=== PATIENT | female | born 2000 | race Caucasian/White ===

== ENCOUNTER 2020-04-14 08:55 | Inpatient (IN) ==
[2020-04-14] MEDS ORDERED: OXYTOCIN 30 UNITS/500 ML BAG IV PRN ×2 (09:40)
--- NOTE | 2020-04-14 10:00 | Obstetrical Progress Note ---
Date of Service April 14, 2020 Assessment & Plan Admission and Anticipated Discharge Date Admission Date: April 14, 2020 Subjective Met pt and reviewed PNC SROM ay 21;00 on 04/13/20 FHR; CAT! Ctx 3-4mins VE 2-3/50/post bedside sono EFW 7-8lbs by annika will start Pitocin augmentation Results & Data ([facility]) Vital Signs (Past 12 Hours) Vital Signs Temp Pulse Resp BP 04/14/20 09:11 36.8 C 70 20 133/71
[2020-04-14 10:06] LABS: Hemoglobin 11.1 g/dL (12.0-16.0); Mean Corpuscular Hemoglobin 25.4 pg (25-34); Mean Corpuscular Volume 77.8 fL (80-100); Platelet Count 217 K/uL (130-400); RDW Coefficient of Variation 15.4 % (11.5-14.5); RDW Standard Deviation 44.1 fL (36.4-46.3); Red Blood Count 4.37 M/uL (4.2-5.4); White Blood Count 12.42 K/uL (4.8-10.8)
[2020-04-14 10:08] LABS: Mean Corpuscular Hgb Conc 32.6 g/dL (32-36)
[2020-04-14] MEDS: LACTATED RINGER'S 1,000 ML IV PRN ×3 (10:28→19:03)
[2020-04-14 10:29] LABS: Alanine Aminotransferase 15 U/L (12-78); Albumin Level 2.6 gm/dl (3.4-5.0); Alkaline Phosphatase 352 U/L (45-117); Aspartate Aminotransferase 23 U/L (15-37); Bilirubin Direct < 0.1 mg/dl (0-0.2); Bilirubin,Total 0.4 mg/dl (0.2-1); Total Protein 6.1 gm/dl (6.4-8.2)
[2020-04-14] MEDS ORDERED: BUPIVACAINE 0.25% 30 ML VIAL ONE ×2 (14:52→22:23)
[2020-04-14] MEDS ORDERED: ePHEDrine sulfate 50 MG/ML AMP ONE (14:52)
[2020-04-14] MEDS ORDERED: fentaNYL 2MCG/ML ROPIV 1.25MG/ML 100 ML BAG EPI ONE (14:52)
[2020-04-14] MEDS ORDERED: fentaNYL citrate 100 MCG/2 ML VIAL ONE (14:52)
[2020-04-14] MEDS ORDERED: ONDANSETRON INJ 2 MG/ML 2 ML VIAL IV PRN (14:57)
[2020-04-14] MEDS ORDERED: NALOXONE HCL 0.4 MG/1 ML VIAL/CARP IV PRN (14:57)
[2020-04-14] MEDS ORDERED: DiphenhydrAMINE HCL 50 MG/ML VIAL IV PRN (14:57)
[2020-04-14] MEDS ORDERED: NALOXONE HCL 1 MG in SODIUM CHLORIDE 0.9% 1000ML 1,000 ML IV PRN (14:57)
[2020-04-14] MEDS ORDERED: ePHEDrine sulfate 50 MG/ML AMP IV PRN (14:57)
--- NOTE | 2020-04-14 14:57 | Anesthesiology Consultation ---
Date of Service April 14, 2020 Assessment & Plan (1) Encounter for pre-operative examination: Chart Review Chart Review: Acceptable Risk for Labor Epidural Consults Requested none ASA ASA2 Proposed Anesthesia Anesthesia Type: Labor Epidural Risk / Benefits Reviewed With: PT / POA / Parent / Guardian, Accepts Plan and Informed Consent Obtained History Height/Weight Height: 5 ft 9 in Weight: 88.904 kg Allergies Allergy/AdvReac Type Severity Reaction Status Date / Time bee venom protein (honey bee) Allergy Intermediate Hives Verified 04/14/20 09:16 nickel Allergy Mild RASH WHERE Verified 04/14/20 09:16 EVER TOUCHED Medications Home Medications Medication Instructions Recorded Confirmed Last Taken ferrous sulfate 325 mg PO DAILY 04/14/20 04/14/20 04/13/20 19:00 omeprazole magnesium [Prilosec OTC] 20 mg PO DAILY 04/14/20 04/14/20 04/12/20 05:30 vit-iron fum-folic ac 1 tab PO DAILY 04/14/20 04/14/20 04/13/20 19:00 [ Vitamin] Active Medications Generic Name Dose Route Start Last Admin Trade Name Freq PRN Reason Stop Dose Admin Lactated Ringer's 1,000 mls @ 125 mls/hr 04/14/20 09:40 04/14/20 14:40 Lr IV 04/16/20 09:39 999 mls/hr .Q8H PRN Titration L&D Protocol Protocol Oxytocin 30 units in 500 mls @ 12 mls/hr 04/14/20 09:40 04/14/20 14:55 Pitocin IV 04/16/20 09:39 0 units/hr .Q24H PRN 0 mls/hr Labor Induction/Augmentation Titration Protocol 0.72 UNITS/HR Past Medical History Medical History Arm fracture Hepatitis (Chronic) Exercise / Class Metabolic Activity II 4-5 Yardwork/Stairs/Walk up hill Past Family History Family History Other Cancer Heart disease Hypertension Past Anesthesia History No Hx of Anesthesia Complications and No Family Hx of Anesthesia Complications History of PONV No Hx of PONV and No Hx of Motion Sickness Social History Smoking Status: Never smoker Hx Alcohol Use: No Hx Substance Use: No Physical Exam Vital Signs Last Vital Signs Temp 98.2 F 04/14/20 14:00 Pulse 75 04/14/20 14:52 Resp 20 04/14/20 14:00 BP 173/80 H 04/14/20 14:50 Pulse Ox 94 04/14/20 14:52 ENMT Mouth: no dentition abnormality Thyromental Distance: > or= 3.5 Finger Breadths Mallampati Class: II Neck normal visual inspection Respiratory normal respiratory effort Auscultation: lungs clear to auscultation bilaterally Cardiovascular Rate/Rhythm: regular rate and regular rhythm Testing Laboratory Results 04/14/20 09:51
--- NOTE | 2020-04-14 15:19 | Obstetrical Progress Note ---
Date of Service April 14, 2020 Assessment & Plan Admission and Anticipated Discharge Date Admission Date: April 14, 2020 Subjective Called to evaluate pt with sudden onset of chest pain Pain spontaneously resolved as quickly as it came on 3 lead EKG showed nml rhythm BP is 170/80. Pulse Ox >90% Pit; 14 pt reports ctx as mild to moderate A/ Plan' Pt is 20 yo with no cardiac risk factors 12 lead EKG ordered Pt getting epidural Will consider cardiac work up if it recurs again Results & Data ([facility]) Vital Signs (Past 12 Hours) Vital Signs Temp Pulse Resp BP Pulse Ox 04/14/20 15:12 86 93 04/14/20 15:07 75 94 04/14/20 15:02 72 94 04/14/20 14:58 86 94 04/14/20 14:57 73 94 04/14/20 14:56 83 154/80 H 04/14/20 14:54 84 170/81 H 04/14/20 14:52 75 94 04/14/20 14:50 88 173/80 H 04/14/20 14:47 117 H 184/126 H 92 04/14/20 14:00 36.8 C 20 04/14/20 13:56 77 129/75 04/14/20 12:56 75 141/85 H 04/14/20 11:56 36.8 C 79 20 119/53 L 04/14/20 11:17 72 134/81 04/14/20 10:29 36.8 C 72 20 138/82 04/14/20 09:11 36.8 C 70 20 133/71
[2020-04-14] MEDS: fentaNYL 2MCG/ML ROPIV 1.25MG/ML 100 ML BAG EPI PRN (15:51)
--- NOTE | 2020-04-14 16:16 | Consultation ---
Date of Consultation April 14, 2020 Assessment & Plan (1) Chest pain: Pt is 20 y/o F without significant PMH GERD seen in medical consultation at request of Dr Avilez for episode of CP. Pt in labor and delivery and was awaiting epidural. Pt describes as sharp pain started left side of chest and radiated to right side of chest with some SOB and palpitations. Denies any dizziness, syncope, diaphoresis, N/V. Pain lasted 5 minutes and self resolved. EKG was obtained with sinus rhythm rate of [address] depression anterior leads Pt was hypertensive with BPs up to 184/126 with pulse of 117. She did receive her epidural. Her pulse is in 70s-80s and BP down to 137/75. No further CP. No SOB. Will obtain repeat EKG CP may have been secondary to hypertension Monitor for further CP Will need outpatient follow up with PCP (2) : , in active labor Currently in L&D OB care per OBGYN Full Code as per discussion with pt Follows with Dr Breen for routine care Pt was seen and care coordinated with Dr Riggins. See addendum Supervising Physician Co-Signing Physician Notes Attending addendum: Patient seen and examined, care coordinated with Gloria Dutton PA-C 20-year-old female primary , 38-weeks , in active labor, Patient experienced transient episode of sharp substernal chest pain from the left radiating across the chest and back Blood pressure noted to be high 187/80(prior blood pressures been 120s/130s) Stat EKG ordered by anesthesiologist, showed sinus rhythm with subtle T wave inversion on anterolateral leads During the interview patient is completely symptom-free, but BP 134/70, Per nursing, patient started to experience chest pain, while getting IV fluid bolus prior to epidural anesthesia Got epidural without any complication Continue to monitor patient, no testing or imaging is necessary at this point Further recurrence of symptoms oral hypertensive episode, patient will require echocardiogram to rule out cardiomyopathy and possible consideration for antihypertensive medication all of them could be done as an outpatient at a later date Thank you for the consult and allowing us to participate to care for this patient. We will continue to follow this patient during her hospital stay. please feel free to contact us with any question or concern Libia Riggins MD History of Present Illness Requesting Physician: Dr Avilez Reason for Consultation: CP Attending Physician: Joaquin Avilez MD History of Present Illness Pt is 20 y/o F without significant PMH GERD seen in medical consultation at request of Dr Avilez for episode of CP. Pt in labor and delivery and was awaiting epidural. Nurse reports started LR and then reports pt c/o sudden onset of CP. Pt states was not having significant contraction pains prior or at the time of CP. She describes as sharp pain started left side of chest and radiated to right side of chest with some SOB and palpitations. Denies any dizziness, syncope, diaphoresis, N/V. Pain lasted 5 minutes and self resolved. Pt states was not feeling anxious. It was noted pt's BPs up to 184/126 with pulse of 117. An EKG was later obtained with pulse of 77, sinus rhythm with some ST depression anterior leads. Pt Currently is asymptomatic and without any CP, SOB, palpitations. She did receive her epidural. Her pulse is in 70s-80s and BP down to 137/75. Denies h/o CP or palpitations in the past. Denies fever/chills, diaphoresis, N/V/D/C, BALLESTEROS, dizziness, syncope, vision changes, neck pain, cough, paresthesias, weakness, extremity edema, extremity pain, rashes, urinary symptoms. Allergies Allergy/AdvReac Type Severity Reaction Status Date / Time bee venom protein (honey bee) Allergy Intermediate Hives Verified 04/14/20 09:16 nickel Allergy Mild RASH WHERE Verified 04/14/20 09:16 EVER TOUCHED Home Medications Home Medications Medication Instructions Recorded Confirmed Type ferrous sulfate 325 mg PO DAILY 04/14/20 04/14/20 History omeprazole magnesium [Prilosec OTC] 20 mg PO DAILY 04/14/20 04/14/20 History vit-iron fum-folic ac 1 tab PO DAILY 04/14/20 04/14/20 History [ Vitamin] Patient History Medical History Arm fracture GERD (gastroesophageal reflux disease) Mononucleosis Family History Grandfather Heart disease Other Cancer Hypertension Social History Smoking Status: Never smoker Hx Alcohol Use: No Hx Substance Use: No Preferred Language: Palau[place] Care Transition Mgr Required: No Beliefs That Will Affect Care: None marital status: Single Current Living Situation: Significant Other current occupational status: employed Other Information That Helps Us Care for You: No Feels Safe at Home: Yes Safety Concerns: Feels Safe At This Time Review of Systems Review of Systems: All systems reviewed & are unremarkable except as noted in HPI & below Physical Exam Physical Exam: General: no distress, WDWN Head: normocephalic, atraumatic Eyes: conjunctiva non-injected, anicteric ENT: normal inspection external ears, nose, mucous membranes moist Neck: supple, trachea midline Lungs: clear, no respiratory distress, no wheezing/rhonchi/rales CV: RRR, no murmur, no pretibial edema Abd: normal BS, +gravid Ext: no cyanosis, no erythema, no calf tenderness Neuro: A&O x 3, no focal deficits noted, normal affect Skin: warm, dry Results & Data ([facility]) Vital Signs (Past 12 Hours) Vital Signs Temp Pulse Resp BP Pulse Ox 04/14/20 16:08 76 136/72 98 04/14/20 16:05 75 134/71 04/14/20 16:03 87 97 04/14/20 16:02 79 132/70 04/14/20 16:00 37.1 C 18 04/14/20 15:59 75 135/74 04/14/20 15:58 76 96 04/14/20 15:56 77 134/73 04/14/20 15:53 80 135/73 96 04/14/20 15:49 71 144/77 H 04/14/20 15:48 73 20 97 04/14/20 15:44 86 149/95 H 04/14/20 15:30 82 150/91 H 04/14/20 15:27 97 H 91 04/14/20 15:22 91 H 96 04/14/20 15:18 76 141/84 H 04/14/20 15:17 73 95 04/14/20 15:12 86 93 04/14/20 15:07 75 94 04/14/20 15:02 72 94 04/14/20 14:58 86 94 04/14/20 14:57 73 94 04/14/20 14:56 83 154/80 H 04/14/20 14:54 84 170/81 H 04/14/20 14:52 75 94 04/14/20 14:50 88 173/80 H 04/14/20 14:47 117 H 184/126 H 92 04/14/20 14:00 36.8 C 20 04/14/20 13:56 77 129/75 04/14/20 12:56 75 141/85 H 04/14/20 11:56 36.8 C 79 20 119/53 L 04/14/20 11:17 72 134/81 04/14/20 10:29 36.8 C 72 20 138/82 04/14/20 09:11 36.8 C 70 20 133/71 Laboratory Results Short CBC 04/14/20 Range/Units 09:51 WBC 12.42 H (4.8-10.8) K/uL Hgb 11.1 L (12.0-16.0) g/dL Hct 34.0 L (37-47) % Plt Count 217 (130-400) K/uL Liver Function 04/14/20 Range/Units 09:58 Total Bilirubin 0.4 (0.2-1) mg/dl Direct Bilirubin < 0.1 (0-0.2) mg/dl AST 23 (15-37) U/L ALT 15 (12-78) U/L Alkaline Phosphatase 352 H (45-117) U/L Albumin 2.6 L (3.4-5.0) gm/dl
--- NOTE | 2020-04-14 17:36 | Electrocardiogram Report ---
Test Reason : Blood Pressure : / mmHG Vent. Rate : 077 BPM Atrial Rate : 077 BPM P-R Int : 138 ms QRS Dur : 092 ms QT Int : 384 ms P-R-T Axes : 019 049 012 degrees QTc Int : 434 ms Normal sinus rhythm Abnormal ECG No previous ECGs available Confirmed by Lonnie Garcia ([id number]) on 04/14/2020 5:36:05 PM Referred By: Joaquin Avilez Confirmed By:Raúl Garcia
--- NOTE | 2020-04-14 21:44 | Obstetrical Progress Note ---
Date of Service April 14, 2020 Assessment & Plan Admission and Anticipated Discharge Date Admission Date: April 14, 2020 Subjective Doing well SROM > 12 Hrs Afebrile FHR; CAT1 Ctx; Q3 mins Pit. 6mu VE; 5/80/-2 IUPC and scalp placed Results & Data ([facility]) Vital Signs (Past 12 Hours) Vital Signs Temp Pulse Resp BP Pulse Ox 04/14/20 21:38 83 96 04/14/20 21:34 92 H 134/93 04/14/20 21:33 95 H 96 04/14/20 21:28 88 96 04/14/20 21:23 82 95 04/14/20 21:19 78 136/65 04/14/20 21:18 82 95 04/14/20 21:13 81 95 04/14/20 21:08 107 H 96 04/14/20 21:03 37.0 C 97 H 95 04/14/20 20:58 85 94 04/14/20 20:53 101 H 95 04/14/20 20:50 96 H 144/77 H 04/14/20 20:48 87 94 04/14/20 20:43 93 H 93 04/14/20 20:38 82 94 04/14/20 20:34 78 145/72 H 04/14/20 20:33 80 94 04/14/20 20:28 84 94 04/14/20 20:23 82 95 04/14/20 20:20 80 135/77 04/14/20 20:18 83 94 04/14/20 20:13 84 93 04/14/20 20:08 85 97 04/14/20 20:04 81 130/67 04/14/20 20:03 84 96 04/14/20 19:58 83 95 04/14/20 19:53 73 96 04/14/20 19:50 91 H 120/74 04/14/20 19:48 85 95 04/14/20 19:43 80 97 04/14/20 19:38 82 96 04/14/20 19:35 79 125/72 04/14/20 19:33 79 96 04/14/20 19:28 80 96 04/14/20 19:23 89 95 04/14/20 19:20 92 H 156/102 H 04/14/20 19:18 78 94 04/14/20 19:13 89 95 08/06/20 19:08 80 94 04/14/20 19:04 81 146/85 H 04/14/20 19:03 88 95 04/14/20 19:00 36.8 C 18 04/14/20 18:58 85 95 04/14/20 18:53 96 H 95 04/14/20 18:48 81 135/79 96 04/14/20 18:43 85 96 04/14/20 18:38 83 95 04/14/20 18:33 82 137/84 96 04/14/20 18:30 20 04/14/20 18:28 85 95 04/14/20 18:23 92 H 95 04/14/20 18:20 92 H 130/81 04/14/20 18:18 86 95 04/14/20 18:13 86 95 04/14/20 18:08 84 95 04/14/20 18:03 87 135/70 95 04/14/20 18:00 36.8 C 20 04/14/20 17:58 86 96 04/14/20 17:53 84 96 04/14/20 17:49 86 137/65 04/14/20 17:48 94 H 96 04/14/20 17:43 81 95 04/14/20 17:38 91 H 94 04/14/20 17:33 88 141/70 H 95 04/14/20 17:30 20 04/14/20 17:28 83 95 04/14/20 17:23 91 H 95 04/14/20 17:19 84 141/77 H 04/14/20 17:18 84 95 04/14/20 17:13 82 96 04/14/20 17:08 83 95 04/14/20 17:04 79 138/78 04/14/20 17:03 83 96 04/14/20 17:00 18 04/14/20 16:58 85 94 04/14/20 16:53 97 H 96 04/14/20 16:48 102 H 145/66 H 95 04/14/20 16:45 76 143/68 H 04/14/20 16:43 80 94 04/14/20 16:38 80 132/72 95 04/14/20 16:33 80 138/67 95 04/14/20 16:30 20 08/06/20 16:28 82 131/73 95 08/06/20 16:23 81 129/73 95 04/14/20 16:18 77 137/75 96 04/14/20 16:15 80 133/87 04/14/20 16:13 78 96 04/14/20 16:08 76 136/72 98 04/14/20 16:05 75 134/71 04/14/20 16:03 87 97 04/14/20 16:02 79 132/70 04/14/20 16:00 37.1 C 18 04/14/20 15:59 75 135/74 04/14/20 15:58 76 96 04/14/20 15:56 77 134/73 04/14/20 15:53 80 135/73 96 04/14/20 15:49 71 144/77 H 04/14/20 15:48 73 20 97 04/14/20 15:44 86 149/95 H 04/14/20 15:30 82 150/91 H 04/14/20 15:27 97 H 91 04/14/20 15:22 91 H 96 04/14/20 15:18 76 141/84 H 04/14/20 15:17 73 95 04/14/20 15:12 86 93 04/14/20 15:07 75 94 04/14/20 15:02 72 94 04/14/20 14:58 86 94 04/14/20 14:57 73 94 04/14/20 14:56 83 154/80 H 04/14/20 14:54 84 170/81 H 04/14/20 14:52 75 94 04/14/20 14:50 88 173/80 H 04/14/20 14:47 117 H 184/126 H 92 04/14/20 14:00 36.8 C 20 04/14/20 13:56 77 129/75 04/14/20 12:56 75 141/85 H 04/14/20 11:56 36.8 C 79 20 119/53 L 04/14/20 11:17 72 134/81 04/14/20 10:29 36.8 C 72 20 138/82
--- NOTE | 2020-04-14 22:50 | Anesthesiology Progress Note ---
Date of Service April 14, 2020 Subjective The patient stated having increasing labor pains. I bolused the epidural with 3mL of 0.25% bupivacaine. The patient stated having improved labor pains. VSS throughout. Physical Exam Vital Signs: Last Vital Signs Temp 98.6 F 04/14/20 21:03 Pulse 73 04/14/20 22:48 Resp 18 04/14/20 19:00 BP 155/82 H 04/14/20 22:37 Pulse Ox 94 04/14/20 22:48 Results & Data Medications Administered Lactated Ringer's (Lr) 1,000 mls @ 125 mls/hr IV .Q8H PRN; Protocol PRN Reason: L&D Protocol Stop: 04/16/20 09:39 Last Admin: 04/14/20 19:03 Dose: 125 mls/hr Documented by: [id number] Infusion: 04/14/20 19:03 Dose: 125 mls/hr Documented by: [id number] Infusion: 04/14/20 15:37 Dose: 125 mls/hr Documented by: [id number] Admin: 04/14/20 15:04 Dose: 999 mls/hr Documented by: [id number] Infusion: 04/14/20 15:04 Dose: 999 mls/hr Documented by: [id number] Infusion: 04/14/20 14:40 Dose: 999 mls/hr Documented by: [id number] Admin: 04/14/20 10:28 Dose: 125 mls/hr Documented by: [id number] Oxytocin (Pitocin) 30 units in 500 mls @ 6 mls/hr IV .Q24H PRN; Protocol PRN Reason: Labor Induction/Augmentation Stop: 04/16/20 09:39 Last Titration: 04/14/20 21:00 Dose: 0.36 units/hr, 6 mls/hr Documented by: [id number] Titration: 04/14/20 20:15 Dose: 0.24 units/hr, 4 mls/hr Documented by: [id number] Titration: 04/14/20 19:29 Dose: 0.12 units/hr, 2 mls/hr Documented by: [id number] Titration: 04/14/20 14:55 Dose: 0 units/hr, 0 mls/hr Documented by: [id number] Titration: 04/14/20 14:30 Dose: 0.84 units/hr, 14 mls/hr Documented by: [id number] Titration: 04/14/20 13:59 Dose: 0.72 units/hr, 12 mls/hr Documented by: [id number] Titration: 04/14/20 13:00 Dose: 0.6 units/hr, 10 mls/hr Documented by: [id number] Titration: 04/14/20 12:30 Dose: 0.48 units/hr, 8 mls/hr Documented by: [id number] Titration: 04/14/20 11:58 Dose: 0.36 units/hr, 6 mls/hr Documented by: [id number] Titration: 04/14/20 11:15 Dose: 0.24 units/hr, 4 mls/hr Documented by: [id number] Admin: 04/14/20 10:31 Dose: 0.12 units/hr, 2 mls/hr Documented by: [id number] Cosigned by: [id number] Ropivacaine (Epidural (L&D)) 100 ml EPI PRN PRN; Protocol PRN Reason: Pain R/T Labor Stop: 04/15/20 14:56 Last Admin: 04/14/20 15:51 Dose: 100 ml Documented by: [id number] Cosigned by: [id number]
[2020-04-15] MEDS: fentaNYL 2MCG/ML ROPIV 1.25MG/ML 100 ML BAG EPI PRN (00:35)
[2020-04-15] MEDS ORDERED: Nursing to Pharmacy Communication SCH ×2 (01:30→14:30)
[2020-04-15] MEDS: LACTATED RINGER'S 1,000 ML IV PRN (03:51)
[2020-04-15] MEDS ORDERED: METHYLERGONOVINE MALEATE 0.2 MG/ML AMP ONE (04:45)
[2020-04-15] MEDS ORDERED: miSOPROStoL 200 MCG TAB ONE (04:46)
[2020-04-15] MEDS ORDERED: bisacodyL 10 MG SUPP PR PRN (05:30)
[2020-04-15] MEDS ORDERED: ACETAMINOPHEN 325 MG TAB PO PRN (05:30)
[2020-04-15] MEDS ORDERED: METHYLERGONOVINE MALEATE 0.2 MG/ML AMP IM ONE (05:30)
[2020-04-15] MEDS ORDERED: OXYTOCIN 30 UNITS/500 ML BAG IV PRN (05:30)
[2020-04-15] MEDS ORDERED: DIPHTHERIA/TETANUS/PERTUSSIS 0.5 ML SYR/VIAL IM ONE (05:30)
[2020-04-15] MEDS ORDERED: BENZOCAINE 20% AER SPR 82.5 GM CAN EXT PRN (05:30)
[2020-04-15] MEDS ORDERED: HYDROCORTISONE ACETATE 25 MG SUPP PR PRN (05:30)
[2020-04-15] MEDS ORDERED: miSOPROStoL 200 MCG TAB PR ONE (05:30)
[2020-04-15] MEDS ORDERED: SUPERCREAM 0.870% 15 GM JAR EXT PRN (05:30)
--- NOTE | 2020-04-15 06:17 | Delivery Summary ---
DATE OF OPERATION: 04/14/2020 The patient delivered a live infant male in left occiput anterior presentation. There was tight nuchal cord x3 which was clamped and cut. was delivered and handed over to the pediatric team. Weight is pending. Apgars 6/8. Placenta spontaneously delivered. Inspection of placenta shows a 3-vessel cord. There was some retained placenta which was removed manually and with a banjo curette. Inspection of the perineum showed a third-degree laceration which was repaired in layers with Vicryl suture. Rectal exam post repair showed good sphincter tone, no sutures are palpated in the rectum. All instruments I removed from the vagina and accounted for x2 including sponges, needles and retractors. ESTIMATED BLOOD LOSS: 500 mL. Baby and mother are doing well in recovery. I attest to the content of the Intraoperative Record and any orders documented therein. Any exception s are noted below.
[2020-04-15] MEDS: IBUPROFEN 600 MG TAB PO PRN ×3 (07:29→18:28)
[2020-04-15] MEDS ORDERED: GENTAMICIN CONSULT ACTIVE PRN (08:11)
[2020-04-15] MEDS ORDERED: ONDANSETRON INJ 2 MG/ML 2 ML VIAL IV PRN (08:13)
--- NOTE | 2020-04-15 08:14 | Anesthesia Procedure Note ---
Date of Service April 15, 2020 Anesthesia Post Epidural Note Vital Signs Vital Signs: Temp Pulse Resp BP Pulse Ox 36.6 C 95 H 20 149/88 H 97 04/15/20 03:00 04/15/20 07:37 04/15/20 07:30 04/15/20 07:37 04/15/20 04:40 Pain Intensity Bilateral Abdomen: Pain Intensity: 6 Notes Mental Status: alert / awake / arousable and participated in evaluation Patient Amnestic to Procedure: No Nausea / Vomiting: adequately controlled Pain: adequately controlled Airway Patency, RR, SpO2: stable & adequate BP & HR: stable & adequate Hydration State: stable & adequate Neuraxial Anesthesia: was administered and sensory block is resolving Anesthetic Complications: no major complications apparent and Pt Satisfied with anesthetic care Epidural: Removed without complications and With tip intact
--- NOTE | 2020-04-15 08:28 | Obstetrical Progress Note ---
Date of Service April 15, 2020 Assessment & Plan Admission and Anticipated Discharge Date Admission Date: April 14, 2020 Subjective Patient is seen and examined. She has just delivered this morning after Prolonger PROM 32 hours, repair of 3rd degree perineal laceration and Banjo curettage for retained placenta No AB was given She feels tired and c/o rectal pain Ambulated to BR with dizziness N&V + She is laying on her side and seems in discomfort Vital Signs Temp Pulse Resp BP Pulse Ox 04/15/20 07:37 38.2 C H 95 H 20 149/88 H 04/15/20 07:30 20 04/15/20 07:22 108 H 144/91 H 04/15/20 07:07 109 H 148/87 H 04/15/20 07:00 20 04/15/20 06:52 100 H 154/96 H 04/15/20 06:37 88 151/94 H 04/15/20 06:22 86 163/108 H 04/15/20 06:07 89 162/103 H 04/15/20 05:53 115 H 157/100 H 04/15/20 05:37 98 H 155/108 H 04/15/20 05:30 93 H 149/101 H 04/15/20 05:19 83 144/86 H 04/15/20 05:07 89 142/78 H 04/15/20 04:53 101 H 137/74 04/15/20 04:40 149 H 97 04/15/20 04:38 90 135/60 04/15/20 04:35 104 H 95 04/15/20 04:30 87 95 04/15/20 04:25 87 95 04/15/20 04:20 78 95 04/15/20 04:15 82 89 L 04/15/20 04:14 98 H 85 L 04/15/20 04:08 84 135/92 100 04/15/20 04:03 90 94 04/15/20 03:58 80 94 04/15/20 03:53 79 138/61 94 04/15/20 03:48 84 95 04/15/20 03:43 84 94 04/15/20 03:38 117 H 97 04/15/20 03:37 75 140/69 04/15/20 03:33 91 H 91 04/15/20 03:31 79 87 L 04/15/20 03:28 74 93 04/15/20 03:23 98 H 124/72 91 04/15/20 03:21 97 H 83 L 04/15/20 03:18 84 93 04/15/20 03:13 94 H 92 04/15/20 03:08 99 H 94 04/15/20 03:03 71 92 04/15/20 03:00 36.6 C 18 04/15/20 02:58 76 92 04/15/20 02:53 82 146/80 H 92 04/15/20 02:48 110 H 98 04/15/20 02:43 109 H 95 04/15/20 02:38 73 133/68 92 04/15/20 02:33 82 91 04/15/20 02:28 95 H 95 04/15/20 02:27 82 88 L 04/15/20 02:23 82 139/75 93 04/15/20 02:18 81 93 04/15/20 02:13 72 93 04/15/20 02:08 101 H 135/75 95 04/15/20 02:03 70 93 04/15/20 01:58 71 95 04/15/20 01:53 94 H 98 04/15/20 01:52 80 140/70 04/15/20 01:48 99 H 98 04/15/20 01:43 98 H 93 04/15/20 01:40 36.9 C 20 04/15/20 01:38 68 94 04/15/20 01:37 68 139/71 04/15/20 01:33 97 H 97 04/15/20 01:28 68 95 04/15/20 01:23 71 126/63 96 04/15/20 01:18 100 H 98 04/15/20 01:13 94 H 98 04/15/20 01:08 96 H 114/56 L 99 04/15/20 01:03 79 95 04/15/20 00:58 81 92 04/15/20 00:53 95 H 96 04/15/20 00:52 66 131/68 04/15/20 00:48 107 H 99 04/15/20 00:43 96 H 99 04/15/20 00:38 90 99 04/15/20 00:37 77 131/62 04/15/20 00:33 78 96 03/28 00:28 66 94 08/07/20 00:23 67 141/67 H 91 04/15/20 00:18 68 96 04/15/20 00:13 69 95 04/15/20 00:08 83 128/63 96 04/15/20 00:03 95 H 95 04/15/20 00:00 36.8 C 04/14/20 23:58 75 96 04/14/20 23:53 97 H 95 04/14/20 23:48 79 93 04/14/20 23:43 77 93 04/14/20 23:38 98 H 142/75 H 96 04/14/20 23:33 88 94 04/14/20 23:28 85 94 04/14/20 23:23 71 137/76 93 04/14/20 23:18 87 94 04/14/20 23:13 79 92 04/14/20 23:08 81 94 04/14/20 23:07 77 118/75 04/14/20 23:03 99 H 94 04/14/20 22:58 81 93 04/14/20 22:53 75 93 04/14/20 22:52 72 141/76 H 04/14/20 22:48 73 94 04/14/20 22:43 99 H 94 04/14/20 22:38 67 91 04/14/20 22:37 94 H 155/82 H 04/14/20 22:34 67 153/78 H 04/14/20 22:33 82 95 04/14/20 22:31 70 143/74 H 04/14/20 22:28 68 146/83 H 92 04/14/20 22:25 68 146/84 H 04/14/20 22:23 91 H 96 04/14/20 22:18 78 137/80 98 04/14/20 22:13 74 97 04/14/20 22:08 72 97 04/14/20 22:04 80 155/76 H 04/14/20 22:03 81 98 04/14/20 21:58 82 96 04/14/20 21:53 78 96 04/14/20 21:49 78 145/76 H 04/14/20 21:48 80 97 04/14/20 21:43 104 H 97 04/14/20 21:38 83 96 04/14/20 21:34 92 H 134/93 04/14/20 21:33 95 H 96 04/14/20 21:28 88 96 04/14/20 21:23 82 95 04/14/20 21:19 78 136/65 04/14/20 21:18 82 95 04/14/20 21:13 81 95 04/14/20 21:08 107 H 96 04/14/20 21:03 37.0 C 97 H 95 04/14/20 20:58 85 94 04/14/20 20:53 101 H 95 04/14/20 20:50 96 H 144/77 H 04/14/20 20:48 87 94 04/14/20 20:43 93 H 93 04/14/20 20:38 82 94 04/14/20 20:34 78 145/72 H 04/14/20 20:33 80 94 04/14/20 20:28 84 94 PE: General: Alert, orientedx3, Distress+ Abd: soft, NT, fundus firm, below Umbilicus Perineum intact, labial edema, more on left, gentle digital exam done , no hematoma felt Lochia rubra moderate Ext; NT, no edema AP: 20 yo s/p , after Prolonger PROM 32 hours, repair of 3rd degree perineal laceration and Banjo curettage for retained placenta, ppd# 0 Borderline elevated BP's, labs normal yesterday, seen by hospitalist, not on antihypertensives Temp of 38.2 Plan to run stat labs, start IVF with Oxytocin, Percocet for perineal pain Zofran for N&V IV Clindamycin+ Gentamicin Continue to monitor closely All questions were answered Results & Data ([facility]) Vital Signs (Past 12 Hours) Vital Signs Temp Pulse Resp BP Pulse Ox 04/15/20 07:37 38.2 C H 95 H 20 149/88 H 04/15/20 07:30 20 04/15/20 07:22 108 H 144/91 H 04/15/20 07:07 109 H 148/87 H 04/15/20 07:00 20 04/15/20 06:52 100 H 154/96 H 04/15/20 06:37 88 151/94 H 04/15/20 06:22 86 163/108 H 04/15/20 06:07 89 162/103 H 04/15/20 05:53 115 H 157/100 H 08/07/20 05:37 98 H 155/108 H 04/15/20 05:30 93 H 149/101 H 04/15/20 05:19 83 144/86 H 04/15/20 05:07 89 142/78 H 04/15/20 04:53 101 H 137/74 04/15/20 04:40 149 H 97 04/15/20 04:38 90 135/60 04/15/20 04:35 104 H 95 04/15/20 04:30 87 95 04/15/20 04:25 87 95 04/15/20 04:20 78 95 04/15/20 04:15 82 89 L 04/15/20 04:14 98 H 85 L 04/15/20 04:08 84 135/92 100 04/15/20 04:03 90 94 04/15/20 03:58 80 94 04/15/20 03:53 79 138/61 94 04/15/20 03:48 84 95 04/15/20 03:43 84 94 04/15/20 03:38 117 H 97 04/15/20 03:37 75 140/69 04/15/20 03:33 91 H 91 04/15/20 03:31 79 87 L 04/15/20 03:28 74 93 04/15/20 03:23 98 H 124/72 91 04/15/20 03:21 97 H 83 L 04/15/20 03:18 84 93 04/15/20 03:13 94 H 92 04/15/20 03:08 99 H 94 04/15/20 03:03 71 92 04/15/20 03:00 36.6 C 18 04/15/20 02:58 76 92 04/15/20 02:53 82 146/80 H 92 04/15/20 02:48 110 H 98 04/15/20 02:43 109 H 95 04/15/20 02:38 73 133/68 92 04/15/20 02:33 82 91 04/15/20 02:28 95 H 95 04/15/20 02:27 82 88 L 04/15/20 02:23 82 139/75 93 04/15/20 02:18 81 93 04/15/20 02:13 72 93 04/15/20 02:08 101 H 135/75 95 04/15/20 02:03 70 93 04/15/20 01:58 71 95 04/15/20 01:53 94 H 98 04/15/20 01:52 80 140/70 04/15/20 01:48 99 H 98 04/15/20 01:43 98 H 93 04/15/20 01:40 36.9 C 20 04/15/20 01:38 68 94 04/15/20 01:37 68 139/71 04/15/20 01:33 97 H 97 04/15/20 01:28 68 95 04/15/20 01:23 71 126/63 96 04/15/20 01:18 100 H 98 04/15/20 01:13 94 H 98 04/15/20 01:08 96 H 114/56 L 99 04/15/20 01:03 79 95 04/15/20 00:58 81 92 04/15/20 00:53 95 H 96 04/15/20 00:52 66 131/68 04/15/20 00:48 107 H 99 04/15/20 00:43 96 H 99 04/15/20 00:38 90 99 04/15/20 00:37 77 131/62 04/15/20 00:33 78 96 04/15/20 00:28 66 94 04/15/20 00:23 67 141/67 H 91 04/15/20 00:18 68 96 04/15/20 00:13 69 95 04/15/20 00:08 83 128/63 96 04/15/20 00:03 95 H 95 04/15/20 00:00 36.8 C 04/14/20 23:58 75 96 04/14/20 23:53 97 H 95 04/14/20 23:48 79 93 04/14/20 23:43 77 93 04/14/20 23:38 98 H 142/75 H 96 04/14/20 23:33 88 94 04/14/20 23:28 85 94 04/14/20 23:23 71 137/76 93 04/14/20 23:18 87 94 04/14/20 23:13 79 92 04/14/20 23:08 81 94 04/14/20 23:07 77 118/75 04/14/20 23:03 99 H 94 04/14/20 22:58 81 93 04/14/20 22:53 75 93 04/14/20 22:52 72 141/76 H 04/14/20 22:48 73 94 04/14/20 22:43 99 H 94 04/14/20 22:38 67 91 04/14/20 22:37 94 H 155/82 H 04/14/20 22:34 67 153/78 H 04/14/20 22:33 82 95 04/14/20 22:31 70 143/74 H 04/14/20 22:28 68 146/83 H 92 04/14/20 22:25 68 146/84 H 04/14/20 22:23 91 H 96 04/14/20 22:18 78 137/80 98 04/14/20 22:13 74 97 04/14/20 22:08 72 97 04/14/20 22:04 80 155/76 H 04/14/20 22:03 81 98 04/14/20 21:58 82 96 04/14/20 21:53 78 96 04/14/20 21:49 78 145/76 H 04/14/20 21:48 80 97 04/14/20 21:43 104 H 97 04/14/20 21:38 83 96 04/14/20 21:34 92 H 134/93 04/14/20 21:33 95 H 96 04/14/20 21:28 88 96 04/14/20 21:23 82 95 04/14/20 21:19 78 136/65 04/14/20 21:18 82 95 04/14/20 21:13 81 95 04/14/20 21:08 107 H 96 04/14/20 21:03 37.0 C 97 H 95 20 20:58 85 94 0620 20:53 101 H 95 080620 20:50 96 H 144/77 H 20 20:48 87 94 080620 20:43 93 H 93 0620 20:38 82 94 080620 20:34 78 145/72 H 080620 20:33 80 94 080620 20:28 84 94 080620 20:23 82 95
[2020-04-15] MEDS ORDERED: OXYTOCIN 20 UNITS in LACTATED RINGER'S 1,000 ML IV SCH (08:30)
[2020-04-15 08:38] LABS: Basophils # (auto) 0.04 K/uL (0-0.2); Basophils % (auto) 0.2 %; Eosinophils # (auto) 0.01 K/uL (0-0.5); Hematocrit (blood only) 32.5 % (37-47); Hemoglobin 10.6 g/dL (12.0-16.0); Immature Granulocytes # (auto) 0.11 K/uL (0.00-0.02); Immature Granulocytes % (auto) 0.5 %; Lymphocytes # (auto) 1.54 K/uL (1.2-3.4); Lymphocytes % (auto) 6.8 %; Mean Corpuscular Hemoglobin 25.3 pg (25-34); Mean Corpuscular Hgb Conc 32.6 g/dL (32-36); Mean Corpuscular Volume 77.6 fL (80-100); Mean Platelet Volume 9.7 fL (7.4-10.4); Monocytes # (auto) 1.51 K/uL (0.11-0.59); Monocytes % (auto) 6.7 %; Neutrophils # (auto) 19.49 K/uL (1.4-6.5); Neutrophils % (auto) 85.8 %; Platelet Count 225 K/uL (130-400); RDW Coefficient of Variation 15.5 % (11.5-14.5); RDW Standard Deviation 44.2 fL (36.4-46.3); Red Blood Count 4.19 M/uL (4.2-5.4)
[2020-04-15 08:55] LABS: Albumin Level 2.1 gm/dl (3.4-5.0); Calcium 7.9 mg/dl (8.5-10.1); Creatinine Clr Calc Pharmacy 123.4 ml/min; Est GFR (African American) 112.7; Est GFR (Non-African American) 97.3; Potassium 3.2 mmol/L (3.5-5.1)
[2020-04-15] MEDS: CLINDAMYCIN 900 MG in DEXTROSE 5% 50 ML IV SCH ×2 (08:55→18:28)
[2020-04-15 08:57] LABS: Albumin Globulin Ratio 0.6 (0.9-2); Bilirubin,Total 0.7 mg/dl (0.2-1); Globulin 3.5 gm/dl (2.5-4.0); Total Protein 5.6 gm/dl (6.4-8.2)
[2020-04-15] MEDS ORDERED: GENTAMICIN SULFATE 375 MG in DEXTROSE 5% 100 ML IV SCH (09:00)
[2020-04-15 09:14] LABS: Fibrinogen 418 mg/dl (184-400); INR 1.1 (0.9-1.1); Partial Thromboplastin Time 28.8 Seconds (21.0-31.0); Prothrombin Time 11.1 Seconds (9.0-12.0)
--- NOTE | 2020-04-15 09:31 | Pharmacy Report ---
Pharmacy Abx Initial Consult - Date of Service April 15, 2020 - Pharmacy Dosing Scope Date of Consult: 04/15/20 Consultation requested by: Dr. Paytonscjorge Pharmacy is consulted to initiate gentamicin IV dosing therapy, order appropriate labs and adjust drug dose/frequency. - Subjective The patient is a 20 year old F admitted on 04/14/20 09:40. - Objective Height: 5 ft 9 in Weight: 88.904 kg Vital Signs (Past 12hrs): Vital Signs Temp Pulse Pulse Resp BP BP Pulse Ox 04/15/20 08:17 37.1 C 86 18 123/81 97 04/15/20 07:37 38.2 C H 95 H 20 149/88 H 04/15/20 07:30 20 04/15/20 07:22 108 H 144/91 H 04/15/20 07:07 109 H 148/87 H 04/15/20 07:00 20 04/15/20 06:52 100 H 154/96 H 04/15/20 06:37 88 151/94 H 04/15/20 06:22 86 163/108 H 04/15/20 06:07 89 162/103 H 04/15/20 05:53 115 H 157/100 H 04/15/20 05:37 98 H 155/108 H 04/15/20 05:30 93 H 149/101 H 04/15/20 05:19 83 144/86 H 04/15/20 05:07 89 142/78 H 04/15/20 04:53 101 H 137/74 04/15/20 04:40 149 H 97 04/15/20 04:38 90 135/60 04/15/20 04:35 104 H 95 04/15/20 04:30 87 95 04/15/20 04:25 87 95 04/15/20 04:20 78 95 04/15/20 04:15 82 89 L 04/15/20 04:14 98 H 85 L 04/15/20 04:08 84 135/92 100 04/15/20 04:03 90 94 04/15/20 03:58 80 94 04/15/20 03:53 79 138/61 94 04/15/20 03:48 84 95 04/15/20 03:43 84 94 04/15/20 03:38 117 H 97 04/15/20 03:37 75 140/69 08/07/20 03:33 91 H 91 04/15/20 03:31 79 87 L 04/15/20 03:28 74 93 04/15/20 03:23 98 H 124/72 91 04/15/20 03:21 97 H 83 L 04/15/20 03:18 84 93 04/15/20 03:13 94 H 92 04/15/20 03:08 99 H 94 04/15/20 03:03 71 92 04/15/20 03:00 36.6 C 18 04/15/20 02:58 76 92 04/15/20 02:53 82 146/80 H 92 04/15/20 02:48 110 H 98 04/15/20 02:43 109 H 95 04/15/20 02:38 73 133/68 92 04/15/20 02:33 82 91 04/15/20 02:28 95 H 95 04/15/20 02:27 82 88 L 04/15/20 02:23 82 139/75 93 04/15/20 02:18 81 93 04/15/20 02:13 72 93 04/15/20 02:08 101 H 135/75 95 04/15/20 02:03 70 93 04/15/20 01:58 71 95 04/15/20 01:53 94 H 98 04/15/20 01:52 80 140/70 04/15/20 01:48 99 H 98 04/15/20 01:43 98 H 93 04/15/20 01:40 36.9 C 20 04/15/20 01:38 68 94 04/15/20 01:37 68 139/71 04/15/20 01:33 97 H 97 04/15/20 01:28 68 95 04/15/20 01:23 71 126/63 96 04/15/20 01:18 100 H 98 04/15/20 01:13 94 H 98 04/15/20 01:08 96 H 114/56 L 99 04/15/20 01:03 79 95 04/15/20 00:58 81 92 04/15/20 00:53 95 H 96 04/15/20 00:52 66 131/68 04/15/20 00:48 107 H 99 04/15/20 00:43 96 H 99 04/15/20 00:38 90 99 04/15/20 00:37 77 131/62 04/15/20 00:33 78 96 04/15/20 00:28 66 94 04/15/20 00:23 67 141/67 H 91 04/15/20 00:18 68 96 04/15/20 00:13 69 95 04/15/20 00:08 83 128/63 96 04/15/20 00:03 95 H 95 04/15/20 00:00 36.8 C 04/14/20 23:58 75 96 04/14/20 23:53 97 H 95 04/14/20 23:48 79 93 04/14/20 23:43 77 93 04/14/20 23:38 98 H 142/75 H 96 04/14/20 23:33 88 94 04/14/20 23:28 85 94 04/14/20 23:23 71 137/76 93 04/14/20 23:18 87 94 04/14/20 23:13 79 92 04/14/20 23:08 81 94 04/14/20 23:07 77 118/75 04/14/20 23:03 99 H 94 04/14/20 22:58 81 93 04/14/20 22:53 75 93 04/14/20 22:52 72 141/76 H 04/14/20 22:48 73 94 04/14/20 22:43 99 H 94 04/14/20 22:38 67 91 04/14/20 22:37 94 H 155/82 H 04/14/20 22:34 67 153/78 H 04/14/20 22:33 82 95 04/14/20 22:31 70 143/74 H 04/14/20 22:28 68 146/83 H 92 04/14/20 22:25 68 146/84 H 04/14/20 22:23 91 H 96 04/14/20 22:18 78 137/80 98 04/14/20 22:13 74 97 04/14/20 22:08 72 97 04/14/20 22:04 80 155/76 H 04/14/20 22:03 81 98 04/14/20 21:58 82 96 04/14/20 21:53 78 96 04/14/20 21:49 78 145/76 H 04/14/20 21:48 80 97 04/14/20 21:43 104 H 97 04/14/20 21:38 83 96 04/14/20 21:34 92 H 134/93 04/14/20 21:33 95 H 96 04/14/20 21:28 88 96 04/14/20 21:23 82 95 Lab Results (24hrs): Laboratory Tests (24 Hours) 04/15/20 04/15/20 04/14/20 08:21 08:21 09:51 WBC 22.70 H D 12.42 H Neut # (Auto) 19.49 H Creatinine 0.85 Est Cr Clr Drug Dosing 123.4 - Assessment & Plan Assessment 20 year old F ordered empiric gentamicin and clindamycin for febrile illness/mendez spected endometritis. Patient febrile this morning (Tmax: 38.2 C) with leukocytosis (WBC: 23 K) and left shift (neutrophils: 19). Renal function intact (estimated creatinine clearance is greater than 100 mL/min). Plan Gentamicin * Recommended dosing strategy for this indication is ~5 mg/kg based on actual body weight (i.e. 425 mg) IV q24h * Will order gentamicin trough if therapy continues beyond 72 hours Clindamycin * 900 mg IV q8h - appropriately dosed for this indication Pharmacy will continue to follow and will adjust dose/frequency as necessary. Cheryl juan.
[2020-04-15] MEDS: GENTAMICIN SULFATE IV SCH (09:59)
[2020-04-15] MEDS: DEXTROSE 5% IV SCH (09:59)
[2020-04-15] MEDS ORDERED: LACTATED RINGER'S 500 ML IV ONE (10:30)
[2020-04-15] MEDS: OXYCODONE/ACETAMINOPHEN 5mg/325mg TAB PO PRN ×2 (12:25→18:29)
[2020-04-15] MEDS ORDERED: POTASSIUM CHLORIDE 20 MEQ TABCR PO STA (12:32)
--- NOTE | 2020-04-15 12:32 | Hospitalist Progress Note ---
Date of Service April 15, 2020 Assessment & Plan (1) Chest pain: 20 y/o F without significant PMH GERD was seen yesterday for episode of CP during labor. Pt was hypertensive with BPs up to 184/126 with pulse of 117 at the time of initial consult yesterday. She did receive her epidural. Chest pain has since resolved Successful vaginal delivery today Reported syncopal episode. This may be vasovagal +/- dehydration Hypertension has resolved this AM Get orthostatic vital signs. If positive, will need more IVF resuscitation EKG yesterday showed some TWI in anterior leads. Trops were negative Will repeat EKG to reassess Will obtain repeat EKG Continue to monitor BP Hypertension may be related to labor vs gestational hypertension Lab review did not show any renal abnormalities. No recent UA on file to assess proteinuria Alk phos is trending down Hypokalemic this AM. Replete and monitor Will continue to follow with you Admission and Anticipated Discharge Date Admission Date: April 14, 2020 Subjective Patient seen and examined Patient had a vaginal delivery this AM after PROM 32h with repair of 3rd degree perineal laceration and banjo curettage for retained placenta as reported by [employer]. RN reported patient had a syncopal episode when she wanted to go to the bathroom. EBL during delivery was 500cc At the time of evaluation, patient reported fatigue and mild dizziness on standing Denied any more chest pain after episode during delivery Denied any SOB, MEDEL, cough, leg swelling. Denied any fevers, chills Denied abd pain at the time. Denied any headache Physical Exam Constitutional: + well hydrated; no acute distress Eyes: PERRL, conjunctivae normal, anicteric sclerae ENMT: external ear and nose normal, oropharynx normal Respiratory: normal respiratory effort, lungs clear to auscultation Cardiovascular: RRR, no murmur, no edema Gastrointestinal (Abdomen): Inspection/Auscultation: abdomen normal to inspection Percussion/Palpation: abdomen soft; abdomen nontender Fundus felt below umbilicus Musculoskeletal: no cyanosis or clubbing, extremities motor strength 5/5 Neurologic: PERRL, EOMI, accommodation nl, no face palsy, no dysarthria Psychiatric: A+Ox3, euthymic affect Results & Data Results & Data ([facility]) Vital Signs (Past 12 Hours) Vital Signs Temp Pulse Pulse Resp BP BP Pulse Ox 04/15/20 08:30 37.7 C H 99 H 16 129/84 98 04/15/20 08:17 37.1 C 86 18 123/81 97 04/15/20 07:37 38.2 C H 95 H 20 149/88 H 04/15/20 07:30 20 04/15/20 07:22 108 H 144/91 H 04/15/20 07:07 109 H 148/87 H 04/15/20 07:00 20 04/15/20 06:52 100 H 154/96 H 04/15/20 06:37 88 151/94 H 04/15/20 06:22 86 163/108 H 04/15/20 06:07 89 162/103 H 04/15/20 05:53 115 H 157/100 H 04/15/20 05:37 98 H 155/108 H 04/15/20 05:30 93 H 149/101 H 04/15/20 05:19 83 144/86 H 04/15/20 05:07 89 142/78 H 04/15/20 04:53 101 H 137/74 04/15/20 04:40 149 H 97 04/15/20 04:38 90 135/60 04/15/20 04:35 104 H 95 04/15/20 04:30 87 95 04/15/20 04:25 87 95 04/15/20 04:20 78 95 04/15/20 04:15 82 89 L 04/15/20 04:14 98 H 85 L 04/15/20 04:08 84 135/92 100 04/15/20 04:03 90 94 04/15/20 03:58 80 94 04/15/20 03:53 79 138/61 94 04/15/20 03:48 84 95 04/15/20 03:43 84 94 04/15/20 03:38 117 H 97 04/15/20 03:37 75 140/69 04/15/20 03:33 91 H 91 04/15/20 03:31 79 87 L 04/15/20 03:28 74 93 04/15/20 03:23 98 H 124/72 91 04/15/20 03:21 97 H 83 L 04/15/20 03:18 84 93 04/15/20 03:13 94 H 92 04/15/20 03:08 99 H 94 04/15/20 03:03 71 92 04/15/20 03:00 36.6 C 18 04/15/20 02:58 76 92 04/15/20 02:53 82 146/80 H 92 04/15/20 02:48 110 H 98 04/15/20 02:43 109 H 95 04/15/20 02:38 73 133/68 92 04/15/20 02:33 82 91 04/15/20 02:28 95 H 95 04/15/20 02:27 82 88 L 04/15/20 02:23 82 139/75 93 04/15/20 02:18 81 93 04/15/20 02:13 72 93 04/15/20 02:08 101 H 135/75 95 04/15/20 02:03 70 93 04/15/20 01:58 71 95 04/15/20 01:53 94 H 98 04/15/20 01:52 80 140/70 04/15/20 01:48 99 H 98 04/15/20 01:43 98 H 93 04/15/20 01:40 36.9 C 20 04/15/20 01:38 68 94 04/15/20 01:37 68 139/71 04/15/20 01:33 97 H 97 04/15/20 01:28 68 95 04/15/20 01:23 71 126/63 96 04/15/20 01:18 100 H 98 04/15/20 01:13 94 H 98 04/15/20 01:08 96 H 114/56 L 99 04/15/20 01:03 79 95 04/15/20 00:58 81 92 04/15/20 00:53 95 H 96 04/15/20 00:52 66 131/68 04/15/20 00:48 107 H 99 04/15/20 00:43 96 H 99 04/15/20 00:38 90 99 04/15/20 00:37 77 131/62 04/15/20 00:33 78 96 Laboratory Results Laboratory Results - last 24 hr 04/14/20 04/15/20 04/15/20 20:18 02:23 08:21 WBC 22.70 H D RBC 4.19 L Hgb 10.6 L Hct 32.5 L MCV 77.6 L MCH 25.3 MCHC 32.6 RDW Std Deviation 44.2 RDW Coeff of Bulmaro 15.5 H Plt Count 225 MPV 9.7 Immature Gran % (Auto) 0.5 Neut % (Auto) 85.8 Lymph % (Auto) 6.8 Mcdonough % (Auto) 6.7 Eos % (Auto) 0.0 Baso % (Auto) 0.2 Neut # (Auto) 19.49 H Lymph # (Auto) 1.54 Mcdonough # (Auto) 1.51 H Eos # (Auto) 0.01 Baso # (Auto) 0.04 Immature Gran # (Auto) 0.11 H PT INR APTT PTT Ratio Fibrinogen Sodium Potassium Chloride Carbon Dioxide Anion Gap BUN Creatinine Est Cr Clr Drug Dosing Est GFR ( Amer) Est GFR (Non-Af Amer) Fasting Glucose Calcium Total Bilirubin AST ALT Alkaline Phosphatase Troponin I < 0.015 < 0.015 Total Protein Albumin Globulin Albumin/Globulin Ratio 04/15/20 04/15/20 08:21 08:21 WBC RBC Hgb Hct MCV MCH MCHC RDW Std Deviation RDW Coeff of Bulmaro Plt Count MPV Immature Gran % (Auto) Neut % (Auto) Lymph % (Auto) Mcdonough % (Auto) Eos % (Auto) Baso % (Auto) Neut # (Auto) Lymph # (Auto) Mcdonough # (Auto) Eos # (Auto) Baso # (Auto) Immature Gran # (Auto) PT 11.1 INR 1.1 APTT 28.8 PTT Ratio 1.0 Fibrinogen 418 H Sodium 138 Potassium 3.2 L Chloride 110 H Carbon Dioxide 20 L Anion Gap 8.0 BUN 7 Creatinine 0.85 Est Cr Clr Drug Dosing 123.4 Est GFR ( Amer) 112.7 Est GFR (Non-Af Amer) 97.3 Fasting Glucose 103 H Calcium 7.9 L Total Bilirubin 0.7 AST 35 ALT 15 Alkaline Phosphatase 291 H Troponin I Total Protein 5.6 L Albumin 2.1 L Globulin 3.5 Albumin/Globulin Ratio 0.6 L
[2020-04-15] MEDS: DOCUSATE SODIUM 100 MG CAP PO SCH ×2 (12:52→21:08)
[2020-04-15] MEDS: PRENATAL VITAMIN 1 TAB PO SCH (12:53)
[2020-04-15] MEDS ORDERED: LABETALOL HCL 100 MG TAB PO STA (13:59)
[2020-04-15] MEDS ORDERED: LIDOCAINE 2% JELLY 5 ML TUBE ONE (14:02)
--- NOTE | 2020-04-15 16:40 | Electrocardiogram Report ---
Test Reason : Blood Pressure : / mmHG Vent. Rate : 088 BPM Atrial Rate : 088 BPM P-R Int : 132 ms QRS Dur : 076 ms QT Int : 366 ms P-R-T Axes : 057 059 035 degrees QTc Int : 442 ms Normal sinus rhythm Normal ECG When compared with ECG of 14-APR-2020 19:54, T wave inversion no longer evident in Anterior leads Confirmed by Lonnie Garcia [id number] on 04/15/2020 4:39:45 PM Referred By: Joaquin Avilez Confirmed By:Raúl Garcia
[2020-04-15] MEDS: LACTATED RINGER'S 1,000 ML IV SCH (20:55)
[2020-04-15] MEDS: LABETALOL HCL 100 MG TAB PO SCH (21:09)
[2020-04-16] MEDS: CLINDAMYCIN 900 MG in DEXTROSE 5% 50 ML IV SCH ×3 (01:09→17:23)
[2020-04-16] MEDS: IBUPROFEN 600 MG TAB PO PRN ×3 (04:55→23:24)
[2020-04-16] MEDS: LACTATED RINGER'S 1,000 ML IV SCH (04:56)
[2020-04-16 06:41] LABS: Hematocrit (blood only) 22.8 % (37-47); Hemoglobin 7.5 g/dL (12.0-16.0); Mean Corpuscular Hemoglobin 25.5 pg (25-34); Mean Corpuscular Hgb Conc 32.9 g/dL (32-36); Mean Corpuscular Volume 77.6 fL (80-100); Mean Platelet Volume 9.5 fL (7.4-10.4); Platelet Count 196 K/uL (130-400); RDW Coefficient of Variation 15.9 % (11.5-14.5); RDW Standard Deviation 45.4 fL (36.4-46.3); Red Blood Count 2.94 M/uL (4.2-5.4); White Blood Count 19.52 K/uL (4.8-10.8)
[2020-04-16 06:54] LABS: Albumin Level 1.7 gm/dl (3.4-5.0); BUN Creatinine Ratio 14.2 (10-20); Calcium 7.9 mg/dl (8.5-10.1); Creatinine Clr Calc Pharmacy 132.7 ml/min; Est GFR (African American) 123.2; Est GFR (Non-African American) 106.3; Magnesium 1.5 mg/dl (1.8-2.4); Potassium 4.1 mmol/L (3.5-5.1)
[2020-04-16 06:57] LABS: Albumin Globulin Ratio 0.6 (0.9-2); Bilirubin,Total 0.2 mg/dl (0.2-1); Globulin 2.9 gm/dl (2.5-4.0); Total Protein 4.6 gm/dl (6.4-8.2)
[2020-04-16] MEDS: PRENATAL VITAMIN 1 TAB PO SCH (08:15)
[2020-04-16] MEDS: DOCUSATE SODIUM 100 MG CAP PO SCH ×2 (08:15→20:33)
[2020-04-16] MEDS ORDERED: MAGNESIUM SULFATE / D5W 1 GM/100 ML BAG IV ONE (09:00)
[2020-04-16] MEDS: LABETALOL HCL 100 MG TAB PO SCH ×2 (09:16→20:33)
[2020-04-16] MEDS: GENTAMICIN SULFATE IV SCH (09:35)
[2020-04-16] MEDS: DEXTROSE 5% IV SCH (09:35)
--- NOTE | 2020-04-16 09:52 | Hospitalist Progress Note ---
Date of Service April 16, 2020 Assessment & Plan (1) Chest pain: 20 y/o F without significant PMH GERD was seen yesterday for episode of CP during labor. Pt was hypertensive with BPs up to 184/126 with pulse of 117 at the time of initial consult yesterday. She did receive her epidural. Chest pain has since resolved Successful vaginal delivery on 04/15/20 Reported syncopal episode yesterday. This may be vasovagal +/- dehydration. No more episodes Elevated blood pressure have resolved EKG on day she had chest pain showed some TWI in anterior leads. Trops were negative Repeat EKG yesterday showed TWI have resolved. NSR. Lab review did not show any renal abnormalities. Hypomagnesemic this AM. Replete Hb dropped from 10.6 yesterday to 7.5 today. Acute on chronic microcytic anemia likely due to blood loss with delivery + dilutional effect of IVF as patient has got 4L IVF in the past 24-48h. EBL was 500cc Recheck Hb in AM. Transfuse to keep Hb>7 or with symptomatic anemia Will continue to follow with you while inpatient Admission and Anticipated Discharge Date Admission Date: April 14, 2020 Subjective Patient seen and examined this AM. Reports feeling better today Dizziness, nausea have resolved No more syncopal episodes No chest pain/SOB/palpitations No headaches Elevated blood pressure have normalized. Physical Exam Constitutional: + well hydrated; no acute distress Eyes: PERRL, conjunctivae normal, anicteric sclerae ENMT: external ear and nose normal, oropharynx normal Respiratory: normal respiratory effort, lungs clear to auscultation Cardiovascular: RRR, no murmur, no edema Gastrointestinal (Abdomen): Inspection/Auscultation: abdomen normal to inspection Percussion/Palpation: abdomen soft; abdomen nontender Musculoskeletal: no cyanosis or clubbing, extremities motor strength 5/5 Neurologic: PERRL, EOMI, accommodation nl, no face palsy, no dysarthria Psychiatric: A+Ox3, euthymic affect Results & Data Results & Data ([facility]) Vital Signs (Past 12 Hours) Vital Signs Temp Pulse Resp BP Pulse Ox 04/16/20 05:15 37.0 C 90 18 116/60 100 04/16/20 00:00 37.0 C 80 18 106/57 L 98 Laboratory Results Laboratory Results - last 24 hr 04/16/20 04/16/20 06:09 06:09 WBC 19.52 H RBC 2.94 L Hgb 7.5 L D Hct 22.8 L MCV 77.6 L MCH 25.5 MCHC 32.9 RDW Std Deviation 45.4 RDW Coeff of Bulmaro 15.9 H Plt Count 196 MPV 9.5 Sodium 142 Potassium 4.1 D Chloride 114 H Carbon Dioxide 21 Anion Gap 7.0 BUN 11 D Creatinine 0.79 Est Cr Clr Drug Dosing 132.7 Est GFR ( Amer) 123.2 Est GFR (Non-Af Amer) 106.3 BUN/Creatinine Ratio 14.2 Glucose 91 Calcium 7.9 L Magnesium 1.5 L Total Bilirubin 0.2 D AST 25 ALT 14 Alkaline Phosphatase 191 H Total Protein 4.6 L D Albumin 1.7 L Globulin 2.9 Albumin/Globulin Ratio 0.6 L
--- NOTE | 2020-04-16 10:00 | Obstetrical Progress Note ---
Date of Service April 16, 2020 Assessment & Plan Admission and Anticipated Discharge Date Admission Date: April 14, 2020 Subjective Patient is seen and examined. She feels better, no complaints. Ambulating without dizziness Unable to Void yesterday, mariee was placed and taken out this morning, has not voided yet Tolerating regular diet with out N&V Bleeding is minimal No fever/ chills/ CP/ SOB/ N&V/ Leg pain Breast feeding without problems Vital Signs Temp Pulse Resp BP BP Pulse Ox 04/16/20 05:15 37.0 C 90 18 116/60 100 04/16/20 00:00 37.0 C 80 18 106/57 L 98 04/15/20 19:30 37.1 C 94 H 20 136/81 04/15/20 15:50 36.8 C 87 20 142/82 H 04/15/20 12:15 36.8 C 84 18 152/96 H 160/88 H 99 Intake and Output 04/15/20 04/16/20 04/16/20 22:59 06:59 14:59 Intake Total 56 / 3057.127 9702 / 1278.625 Output Total 950 / 1300 Balance 56 / -21.375 106 / -21.375 Intake: IV 56 / 2080.278 3987 / 1278.625 Cleocin 900 mg In D5w 50 ml @ 56 / 168 56 / 168 112 mls/hr IV Q8H [facility] Rx#: [id number] Lr 1,000 ml @ 125 mls/hr IV . 1000 / 1000 Q8H [facility] Rx#:[id number] Output: Urine Amount (Catheter) 950 / 1300 Mariee/Indwelling 950 / 950 Lab Results 04/14/20 04/14/20 04/14/20 Range/Units 09:51 09:58 20:18 WBC 12.42 H (4.8-10.8) K/uL RBC 4.37 (4.2-5.4) M/uL Hgb 11.1 L (12.0-16.0) g/dL Hct 34.0 L (37-47) % MCV 77.8 L (80-100) fL MCH 25.4 (25-34) pg MCHC 32.6 (32-36) g/dL RDW Std Deviation 44.1 (36.4-46.3) fL RDW Coeff of Bulmaro 15.4 H (11.5-14.5) % Plt Count 217 (130-400) K/uL MPV 10.0 (7.4-10.4) fL Immature Gran % (Auto) % Neut % (Auto) % Lymph % (Auto) % [place] % (Auto) % Eos % (Auto) % Baso % (Auto) % Neut # (Auto) (1.4-6.5) K/uL Lymph # (Auto) (1.2-3.4) K/uL [place] # (Auto) (0.11-0.59) K/uL Eos # (Auto) (0-0.5) K/uL Baso # (Auto) (0-0.2) K/uL Immature Gran # (Auto) (0.00-0.02) K/uL PT (9.0-12.0) Seconds INR (0.9-1.1) APTT (21.0-31.0) Seconds PTT Ratio Fibrinogen (184-400) mg/dl Sodium (136-145) mmol/L Potassium (3.5-5.1) mmol/L Chloride (98-107) mmol/L Carbon Dioxide (21-32) mmol/L Anion Gap (3-11) BUN (7-18) mg/dl Creatinine (0.6-1.2) mg/dl Est Cr Clr Drug Dosing ml/min Est GFR ( Amer) Est GFR (Non-Af Amer) BUN/Creatinine Ratio (10-20) Glucose (70-99) mg/dl Fasting Glucose (70-99) mg/dl Calcium (8.5-10.1) mg/dl Magnesium (1.8-2.4) mg/dl Total Bilirubin 0.4 (0.2-1) mg/dl Direct Bilirubin < 0.1 (0-0.2) mg/dl AST 23 (15-37) U/L ALT 15 (12-78) U/L Alkaline Phosphatase 352 H (45-117) U/L Troponin I < 0.015 (0-0.045) ng/ml Total Protein 6.1 L (6.4-8.2) gm/dl Albumin 2.6 L (3.4-5.0) gm/dl Globulin (2.5-4.0) gm/dl Albumin/Globulin Ratio (0.9-2) COVID-19 PCR (Negative) 04/14/20 04/15/20 04/15/20 Range/Units Unknown 02:23 08:21 WBC 22.70 H D (4.8-10.8) K/uL RBC 4.19 L (4.2-5.4) M/uL Hgb 10.6 L (12.0-16.0) g/dL Hct 32.5 L (37-47) % MCV 77.6 L (80-100) fL MCH 25.3 (25-34) pg MCHC 32.6 (32-36) g/dL RDW Std Deviation 44.2 (36.4-46.3) fL RDW Coeff of Bulmaro 15.5 H (11.5-14.5) % Plt Count 225 (130-400) K/uL MPV 9.7 (7.4-10.4) fL Immature Gran % (Auto) 0.5 % Neut % (Auto) 85.8 % Lymph % (Auto) 6.8 % [place] % (Auto) 6.7 % Eos % (Auto) 0.0 % Baso % (Auto) 0.2 % Neut # (Auto) 19.49 H (1.4-6.5) K/uL Lymph # (Auto) 1.54 (1.2-3.4) K/uL [place] # (Auto) 1.51 H (0.11-0.59) K/uL Eos # (Auto) 0.01 (0-0.5) K/uL Baso # (Auto) 0.04 (0-0.2) K/uL Immature Gran # (Auto) 0.11 H (0.00-0.02) K/uL PT (9.0-12.0) Seconds INR (0.9-1.1) APTT (21.0-31.0) Seconds PTT Ratio Fibrinogen (184-400) mg/dl Sodium (136-145) mmol/L Potassium (3.5-5.1) mmol/L Chloride (98-107) mmol/L Carbon Dioxide (21-32) mmol/L Anion Gap (3-11) BUN (7-18) mg/dl Creatinine (0.6-1.2) mg/dl Est Cr Clr Drug Dosing ml/min Est GFR ( Amer) Est GFR (Non-Af Amer) BUN/Creatinine Ratio (10-20) Glucose (70-99) mg/dl Fasting Glucose (70-99) mg/dl Calcium (8.5-10.1) mg/dl Magnesium (1.8-2.4) mg/dl Total Bilirubin (0.2-1) mg/dl Direct Bilirubin (0-0.2) mg/dl AST (15-37) U/L ALT (12-78) U/L Alkaline Phosphatase (45-117) U/L Troponin I < 0.015 (0-0.045) ng/ml Total Protein (6.4-8.2) gm/dl Albumin (3.4-5.0) gm/dl Globulin (2.5-4.0) gm/dl Albumin/Globulin Ratio (0.9-2) COVID-19 PCR NEGATIVE (Negative) 04/15/20 04/15/20 04/16/20 Range/Units 08:21 08:21 06:09 WBC 19.52 H (4.8-10.8) K/uL RBC 2.94 L (4.2-5.4) M/uL Hgb 7.5 L D (12.0-16.0) g/dL Hct 22.8 L (37-47) % MCV 77.6 L (80-100) fL MCH 25.5 (25-34) pg MCHC 32.9 (32-36) g/dL RDW Std Deviation 45.4 (36.4-46.3) fL RDW Coeff of Bulmaro 15.9 H (11.5-14.5) % Plt Count 196 (130-400) K/uL MPV 9.5 (7.4-10.4) fL Immature Gran % (Auto) % Neut % (Auto) % Lymph % (Auto) % [place] % (Auto) % Eos % (Auto) % Baso % (Auto) % Neut # (Auto) (1.4-6.5) K/uL Lymph # (Auto) (1.2-3.4) K/uL [place] # (Auto) (0.11-0.59) K/uL Eos # (Auto) (0-0.5) K/uL Baso # (Auto) (0-0.2) K/uL Immature Gran # (Auto) (0.00-0.02) K/uL PT 11.1 (9.0-12.0) Seconds INR 1.1 (0.9-1.1) APTT 28.8 (21.0-31.0) Seconds PTT Ratio 1.0 Fibrinogen 418 H (184-400) mg/dl Sodium 138 (136-145) mmol/L Potassium 3.2 L (3.5-5.1) mmol/L Chloride 110 H (98-107) mmol/L Carbon Dioxide 20 L (21-32) mmol/L Anion Gap 8.0 (3-11) BUN 7 (7-18) mg/dl Creatinine 0.85 (0.6-1.2) mg/dl Est Cr Clr Drug Dosing 123.4 ml/min Est GFR ( Amer) 112.7 Est GFR (Non-Af Amer) 97.3 BUN/Creatinine Ratio (10-20) Glucose (70-99) mg/dl Fasting Glucose 103 H (70-99) mg/dl Calcium 7.9 L (8.5-10.1) mg/dl Magnesium (1.8-2.4) mg/dl Total Bilirubin 0.7 (0.2-1) mg/dl Direct Bilirubin (0-0.2) mg/dl AST 35 (15-37) U/L ALT 15 (12-78) U/L Alkaline Phosphatase 291 H (45-117) U/L Troponin I (0-0.045) ng/ml Total Protein 5.6 L (6.4-8.2) gm/dl Albumin 2.1 L (3.4-5.0) gm/dl Globulin 3.5 (2.5-4.0) gm/dl Albumin/Globulin Ratio 0.6 L (0.9-2) COVID-19 PCR (Negative) 04/16/20 Range/Units 06:09 WBC (4.8-10.8) K/uL RBC (4.2-5.4) M/uL Hgb (12.0-16.0) g/dL Hct (37-47) % MCV (80-100) fL MCH (25-34) pg MCHC (32-36) g/dL RDW Std Deviation (36.4-46.3) fL RDW Coeff of Bulmaro (11.5-14.5) % Plt Count (130-400) K/uL MPV (7.4-10.4) fL Immature Gran % (Auto) % Neut % (Auto) % Lymph % (Auto) % [place] % (Auto) % Eos % (Auto) % Baso % (Auto) % Neut # (Auto) (1.4-6.5) K/uL Lymph # (Auto) (1.2-3.4) K/uL [place] # (Auto) (0.11-0.59) K/uL Eos # (Auto) (0-0.5) K/uL Baso # (Auto) (0-0.2) K/uL Immature Gran # (Auto) (0.00-0.02) K/uL PT (9.0-12.0) Seconds INR (0.9-1.1) APTT (21.0-31.0) Seconds PTT Ratio Fibrinogen (184-400) mg/dl Sodium 142 (136-145) mmol/L Potassium 4.1 D (3.5-5.1) mmol/L Chloride 114 H (98-107) mmol/L Carbon Dioxide 21 (21-32) mmol/L Anion Gap 7.0 (3-11) BUN 11 D (7-18) mg/dl Creatinine 0.79 (0.6-1.2) mg/dl Est Cr Clr Drug Dosing 132.7 ml/min Est GFR ( Amer) 123.2 Est GFR (Non-Af Amer) 106.3 BUN/Creatinine Ratio 14.2 (10-20) Glucose 91 (70-99) mg/dl Fasting Glucose (70-99) mg/dl Calcium 7.9 L (8.5-10.1) mg/dl Magnesium 1.5 L (1.8-2.4) mg/dl Total Bilirubin 0.2 D (0.2-1) mg/dl Direct Bilirubin (0-0.2) mg/dl AST 25 (15-37) U/L ALT 14 (12-78) U/L Alkaline Phosphatase 191 H (45-117) U/L Troponin I (0-0.045) ng/ml Total Protein 4.6 L D (6.4-8.2) gm/dl Albumin 1.7 L (3.4-5.0) gm/dl Globulin 2.9 (2.5-4.0) gm/dl Albumin/Globulin Ratio 0.6 L (0.9-2) COVID-19 PCR (Negative) PE: General: Alert, orientedx3, NAD Abd: soft, NT, fundus firm, below Umbilicus Perineum intact, Lochia rubra minimal Ext; NT, no edema AP: 20 yo s/p , after prolonged PROM, curettage of retained placenta, 3rd degree repair, ppd# 1 VSS Afebrile doing well Anemic: asymptomatic: start iron bid, PNV Continue with IV AB for 48 hours nd d/c home tomorrow with PO AB Continue routine care All questions were answered Results & Data ([facility]) Vital Signs (Past 12 Hours) Vital Signs Temp Pulse Resp BP Pulse Ox 04/16/20 05:15 37.0 C 90 18 116/60 100 04/16/20 00:00 37.0 C 80 18 106/57 L 98
[2020-04-16] MEDS: FERROUS SULFATE 325 MG TAB PO SCH (10:56)
[2020-04-16] MEDS ORDERED: bisacodyL 5 MG TABEC PO SCH (20:00)
[2020-04-17 01:03] VITALS: O2SAT 99
[2020-04-17] MEDS: CLINDAMYCIN 900 MG in DEXTROSE 5% 50 ML IV SCH ×2 (01:21→08:37)
[2020-04-17 06:59] LABS: Basophils # (auto) 0.06 K/uL (0-0.2); Basophils % (auto) 0.4 %; Eosinophils # (auto) 0.72 K/uL (0-0.5); Eosinophils % (auto) 4.4 %; Hematocrit (blood only) 22.8 % (37-47); Hemoglobin 7.2 g/dL (12.0-16.0); Immature Granulocytes # (auto) 0.17 K/uL (0.00-0.02); Lymphocytes # (auto) 2.72 K/uL (1.2-3.4); Lymphocytes % (auto) 16.6 %; Mean Corpuscular Hemoglobin 25.3 pg (25-34); Mean Corpuscular Hgb Conc 31.6 g/dL (32-36); Mean Platelet Volume 9.2 fL (7.4-10.4); Monocytes # (auto) 0.58 K/uL (0.11-0.59); Monocytes % (auto) 3.5 %; Neutrophils % (auto) 74.1 %; Platelet Count 218 K/uL (130-400); RDW Coefficient of Variation 16.2 % (11.5-14.5); RDW Standard Deviation 47.8 fL (36.4-46.3); Red Blood Count 2.85 M/uL (4.2-5.4); White Blood Count 16.35 K/uL (4.8-10.8)
[2020-04-17 07:33] LABS: RBC Morphology Unremarkable
[2020-04-17] MEDS: PRENATAL VITAMIN 1 TAB PO SCH (07:49)
[2020-04-17] MEDS: FERROUS SULFATE 325 MG TAB PO SCH (07:49)
[2020-04-17] MEDS: DOCUSATE SODIUM 100 MG CAP PO SCH (07:50)
[2020-04-17 07:54] LABS: Creatinine Clr Calc Pharmacy 143.7 ml/min; Est GFR (African American) 135.5; Est GFR (Non-African American) 116.9
[2020-04-17] MEDS: LABETALOL HCL 100 MG TAB PO SCH (08:38)
--- NOTE | 2020-04-17 08:59 | Hospitalist Progress Note ---
Date of Service April 17, 2020 Assessment & Plan (1) Hypertension: (2) Chest pain: 20 y/o F without significant PMH GERD was seen yesterday for episode of CP during labor. Pt was hypertensive with BPs up to 184/126 with pulse of 117 at the time of initial consult yesterday. She did receive her epidural. Chest pain has since resolved Successful vaginal delivery on 04/15/20 Reported syncopal episode on day of delivery. This may be vasovagal +/- dehydration. No more episodes since EKG on day she had chest pain showed some TWI in anterior leads. Trops were negative Repeat EKG yesterday showed TWI have resolved. NSR. Hypertension controlled on po labetalol Can be discharged on this and to follow up with OBS and PCP for monitoring during period Hb dropped from 10.6 two days ago to 7.5 yesterday. Stable at 7.2 today Acute on chronic microcytic anemia likely due to blood loss with delivery + dilutional effect of IVF as patient has got 4L IVF in the past 48h. EBL was 500cc Microcytic anemia. Continue po iron on discharge Admission and Anticipated Discharge Date Admission Date: April 14, 2020 Subjective Patient seen and examined Reports no complaint No more chest pain since after initial episode during labor No dizziness No more syncopal episodes since after day of delivery. Physical Exam Constitutional: + well hydrated; no acute distress Eyes: PERRL, conjunctivae normal, anicteric sclerae ENMT: external ear and nose normal, oropharynx normal Respiratory: normal respiratory effort, lungs clear to auscultation Cardiovascular: RRR, no murmur, no edema Gastrointestinal (Abdomen): Inspection/Auscultation: abdomen normal to inspection Percussion/Palpation: abdomen soft; abdomen nontender Musculoskeletal: no cyanosis or clubbing, extremities motor strength 5/5 Neurologic: PERRL, EOMI, accommodation nl, no face palsy, no dysarthria Psychiatric: A+Ox3, euthymic affect Results & Data Results & Data ([facility]) Vital Signs (Past 12 Hours) Vital Signs Temp Pulse Resp BP Pulse Ox 04/16/20 23:20 36.7 C 86 14 136/77 99 Laboratory Results Laboratory Results - last 24 hr 04/17/20 04/17/20 06:32 06:32 WBC 16.35 H RBC 2.85 L Hgb 7.2 L Hct 22.8 L MCV 80.0 MCH 25.3 MCHC 31.6 L RDW Std Deviation 47.8 H RDW Coeff of Bulmaro 16.2 H Plt Count 218 MPV 9.2 Immature Gran % (Auto) 1.0 Neut % (Auto) 74.1 Lymph % (Auto) 16.6 [place] % (Auto) 3.5 Eos % (Auto) 4.4 Baso % (Auto) 0.4 Neut # (Auto) 12.10 H Lymph # (Auto) 2.72 [place] # (Auto) 0.58 Eos # (Auto) 0.72 H Baso # (Auto) 0.06 Immature Gran # (Auto) 0.17 H RBC Morphology Unremarkable Creatinine 0.73 Est Cr Clr Drug Dosing 143.7 Est GFR ( Amer) 135.5 Est GFR (Non-Af Amer) 116.9
[2020-04-17 09:19] VITALS: TEMP 97.7
[2020-04-17 10:59] VITALS: BP 130/74; PULSE 80
--- NOTE | 2020-04-17 10:59 | Obstetrical Progress Note ---
Date of Service April 17, 2020 Assessment & Plan Admission and Anticipated Discharge Date Admission Date: April 14, 2020 Physical Exam Constitutional: WD/WN, vitals as above comfortable abdomen soft and non- tender no edema neg Je's denies SOB or dizzy when ambulating herminio diet for d/c f/u in 1 week in office Results & Data ([facility]) Vital Signs (Past 12 Hours) Vital Signs Temp Pulse Resp BP Pulse Ox 04/17/20 08:00 36.5 C 76 16 138/86 99 04/16/20 23:20 36.7 C 86 14 136/77 99 Laboratory Results Laboratory Results - last 72 hr 04/14/20 04/14/20 04/15/20 20:18 Unknown 02:23 WBC RBC Hgb Hct MCV MCH MCHC RDW Std Deviation RDW Coeff of Bulmaro Plt Count MPV Immature Gran % (Auto) Neut % (Auto) Lymph % (Auto) [place] % (Auto) Eos % (Auto) Baso % (Auto) Neut # (Auto) Lymph # (Auto) [place] # (Auto) Eos # (Auto) Baso # (Auto) Immature Gran # (Auto) RBC Morphology PT INR APTT PTT Ratio Fibrinogen Sodium Potassium Chloride Carbon Dioxide Anion Gap BUN Creatinine Est Cr Clr Drug Dosing Est GFR ( Amer) Est GFR (Non-Af Amer) BUN/Creatinine Ratio Glucose Fasting Glucose Calcium Magnesium Total Bilirubin AST ALT Alkaline Phosphatase Troponin I < 0.015 < 0.015 Total Protein Albumin Globulin Albumin/Globulin Ratio COVID-19 PCR NEGATIVE 04/15/20 04/15/20 04/15/20 08:21 08:21 08:21 WBC 22.70 H D RBC 4.19 L Hgb 10.6 L Hct 32.5 L MCV 77.6 L MCH 25.3 MCHC 32.6 RDW Std Deviation 44.2 RDW Coeff of Bulmaro 15.5 H Plt Count 225 MPV 9.7 Immature Gran % (Auto) 0.5 Neut % (Auto) 85.8 Lymph % (Auto) 6.8 [place] % (Auto) 6.7 Eos % (Auto) 0.0 Baso % (Auto) 0.2 Neut # (Auto) 19.49 H Lymph # (Auto) 1.54 [place] # (Auto) 1.51 H Eos # (Auto) 0.01 Baso # (Auto) 0.04 Immature Gran # (Auto) 0.11 H RBC Morphology PT 11.1 INR 1.1 APTT 28.8 PTT Ratio 1.0 Fibrinogen 418 H Sodium 138 Potassium 3.2 L Chloride 110 H Carbon Dioxide 20 L Anion Gap 8.0 BUN 7 Creatinine 0.85 Est Cr Clr Drug Dosing 123.4 Est GFR ( Amer) 112.7 Est GFR (Non-Af Amer) 97.3 BUN/Creatinine Ratio Glucose Fasting Glucose 103 H Calcium 7.9 L Magnesium Total Bilirubin 0.7 AST 35 ALT 15 Alkaline Phosphatase 291 H Troponin I Total Protein 5.6 L Albumin 2.1 L Globulin 3.5 Albumin/Globulin Ratio 0.6 L COVID-19 PCR 04/16/20 04/16/20 04/17/20 06:09 06:09 06:32 WBC 19.52 H 16.35 H RBC 2.94 L 2.85 L Hgb 7.5 L D 7.2 L Hct 22.8 L 22.8 L MCV 77.6 L 80.0 MCH 25.5 25.3 MCHC 32.9 31.6 L RDW Std Deviation 45.4 47.8 H RDW Coeff of Bulmaro 15.9 H 16.2 H Plt Count 196 218 MPV 9.5 9.2 Immature Gran % (Auto) 1.0 Neut % (Auto) 74.1 Lymph % (Auto) 16.6 [place] % (Auto) 3.5 Eos % (Auto) 4.4 Baso % (Auto) 0.4 Neut # (Auto) 12.10 H Lymph # (Auto) 2.72 [place] # (Auto) 0.58 Eos # (Auto) 0.72 H Baso # (Auto) 0.06 Immature Gran # (Auto) 0.17 H RBC Morphology Unremarkable PT INR APTT PTT Ratio Fibrinogen Sodium 142 Potassium 4.1 D Chloride 114 H Carbon Dioxide 21 Anion Gap 7.0 BUN 11 D Creatinine 0.79 Est Cr Clr Drug Dosing 132.7 Est GFR ( Amer) 123.2 Est GFR (Non-Af Amer) 106.3 BUN/Creatinine Ratio 14.2 Glucose 91 Fasting Glucose Calcium 7.9 L Magnesium 1.5 L Total Bilirubin 0.2 D AST 25 ALT 14 Alkaline Phosphatase 191 H Troponin I Total Protein 4.6 L D Albumin 1.7 L Globulin 2.9 Albumin/Globulin Ratio 0.6 L COVID-19 PCR 04/17/20 06:32 WBC RBC Hgb Hct MCV MCH MCHC RDW Std Deviation RDW Coeff of Bulmaro Plt Count MPV Immature Gran % (Auto) Neut % (Auto) Lymph % (Auto) [place] % (Auto) Eos % (Auto) Baso % (Auto) Neut # (Auto) Lymph # (Auto) [place] # (Auto) Eos # (Auto) Baso # (Auto) Immature Gran # (Auto) RBC Morphology PT INR APTT PTT Ratio Fibrinogen Sodium Potassium Chloride Carbon Dioxide Anion Gap BUN Creatinine 0.73 Est Cr Clr Drug Dosing 143.7 Est GFR ( Amer) 135.5 Est GFR (Non-Af Amer) 116.9 BUN/Creatinine Ratio Glucose Fasting Glucose Calcium Magnesium Total Bilirubin AST ALT Alkaline Phosphatase Troponin I Total Protein Albumin Globulin Albumin/Globulin Ratio COVID-19 PCR
== END 2020-04-17 11:45 | disposition home or self-care (01) | DRG 768 ==
LOC: OPB 08:55 → 4S1 08:56 → 4S2 04-15 08:18